=== PATIENT | male | born 1935 | race Caucasian/White ===

== ENCOUNTER → 2020-03-22 | Outpatient (CLI) | payer MEDICARE, OTHER ==
[~2020-03-22] MED LIST: ASP325TEC; ATOR40TA PO; BIMA2.5D3 OD; CEPH500C PO; DLT240CCR; ENAL5TAB PO; FAMO40TA6 PO; HCT25T; HYDR1TAB PO; METO25TA2 PO; OMEG1CAP51 PO
== END ==
LOC: CARD 07:53
PROVIDERS: ATTEND Physician Assistant
DX: I11.9 Hypertensive heart disease without heart failure (principal); I25.10 Atherosclerotic heart disease of native coronary artery without angina pectoris; E78.5 Hyperlipidemia, unspecified; I34.0 Nonrheumatic mitral (valve) insufficiency
CPT/HCPCS: 93306

== ENCOUNTER 2020-06-21 08:29 | Outpatient (RCR) | payer MEDICARE, OTHER | END 2020-07-26 | disposition home or self-care (01) | PROVIDERS: ATTEND Orthopaedic Surgery | DX: M70.62 Trochanteric bursitis, left hip (principal); M41.80 Other forms of scoliosis, site unspecified; R07.81 Pleurodynia; M51.86 Other intervertebral disc disorders, lumbar region; M51.84 Other intervertebral disc disorders, thoracic region; Z95.1 Presence of aortocoronary bypass graft; Z87.81 Personal history of (healed) traumatic fracture; Z96.651 Presence of right artificial knee joint; Z86.69 Personal history of other diseases of the nervous system and sense organs; Z87.39 Personal history of other diseases of the musculoskeletal system and connective tissue ==

== ENCOUNTER → 2021-04-22 | Outpatient (CLI) | payer MEDICARE, OTHER | LOC: CARD 15:00 | PROVIDERS: ATTEND Internal Medicine Cardiovascular Disease | DX: I11.9 Hypertensive heart disease without heart failure (principal); I34.0 Nonrheumatic mitral (valve) insufficiency; I25.10 Atherosclerotic heart disease of native coronary artery without angina pectoris | CPT/HCPCS: 93306 ==

== ENCOUNTER 2021-12-21 12:24 | Outpatient (RCR) | payer MEDICARE, OTHER ==
[2021-12-12 12:32] VITALS: BP 142/71
[2021-12-12] MEDS: IRON SUCROSE 200 MG/10 ML (VENOFER) VIAL IV SCH (12:58)
[2021-12-14] MEDS: IRON SUCROSE 200 MG/10 ML (VENOFER) VIAL IV SCH (12:48)
[2021-12-14 12:57] VITALS: BP 116/72
[2021-12-16 12:30] VITALS: BP 123/70
[2021-12-16] MEDS: IRON SUCROSE 200 MG/10 ML (VENOFER) VIAL IV SCH (12:49)
[2021-12-19 12:30] VITALS: BP 173/77
[2021-12-19] MEDS: IRON SUCROSE 200 MG/10 ML (VENOFER) VIAL IV SCH (12:46)
[~2021-12-21] VITALS: Ht 172.7 cm; Wt 90.9 kg
[2021-12-21] MEDS ORDERED: IRON SUCROSE 200 MG/10 ML (VENOFER) VIAL IV SCH (12:37)
[2021-12-21 12:45] VITALS: BP 173/77
[2021-12-21 13:32] VITALS: BP 164/72
== END 2021-12-27 | disposition home or self-care (01) ==
LOC: SDC 12:24
PROVIDERS: ATTEND Internal Medicine
DX: E61.1 Iron deficiency (principal)
CPT/HCPCS: 96365